=== PATIENT | female | born 1995 | race Caucasian/White ===

== ENCOUNTER 2017-02-05 07:35 | Outpatient (CLI) ==
--- NOTE | 2017-02-05 08:37 | US ---
Exam: Oliver-scale and color Doppler ultrasonographic evaluation of the abdomen. Comparison: CT abdomen pelvis performed on 02/05/2011. Reason for exam: Right upper quadrant pain. FINDINGS: The liver measures 13.66 cm in length with a normal appearing echotexture, no intrahepatic ductal dilatation, or perihepatic free fluid. There is normal antegrade portal venous flow. There is a 1.79 x 1.8 x 1.24 cm solid appearing hyperechoic nodule. The gallbladder is unremarkable without intraluminal stone, sludge or polyp. The gallbladder wall me asures 0.24 cm which is within normal limits. The common bile duct measures 0.33 cm without intraluminal stone or polyp which also is within normal limits. The partially imaged pancreas appears grossly unremarkable. The right kidney measures 10.49 x 4.28 x 4.24 cm with a normal appearing echotexture, no hydronephros is, and no nephrolithiasis. Impression: 1. 1.8 cm hyperechoic solid nodule within the hepatic parenchyma. Imaging findings are most consiste nt with a hepatic hemangioma. Other less likely etiologies include both benign and malignant process es. Recommend follow-up evaluation to document stability or further characterization with contrasted CT or MRI. 2. No acute ultrasonographic findings are seen within the partially imaged abdomen.
== END 2017-02-05 07:36 | disposition home or self-care (01) ==
LOC: RAD 07:35
PROVIDERS: ATTEND Family Medicine
DX: R10.11 Right upper quadrant pain (principal)

== ENCOUNTER 2017-02-10 07:07 | Outpatient (CLI) ==
--- NOTE | 2017-02-10 11:04 | MRI ---
Exam: MRI of the abdomen with and without contrast. History: Liver mass. Procedures: Axial and coronal T2 HASTE, axial T1W in and out of phase, axial inversion recovery, axi al T2 fat-saturated, axial diffusion weighted images with ADC maps and axial T1 fat-saturated images of the abdomen were obtained prior to the intravenous administration of 15 ml Omniscan. Dynamic post contrast axial T1 fat-saturated images of the abdomen were obtained as well as a coronal T1 fat satur ated series. Comparison: CT abdomen and pelvis 02/05/2011 and ultrasound of the abdomen 02/05/2017. Findings: The liver appears within normal limits of size. There is no significant signal drop on opp osed phase imaging. There is no enhancing intrahepatic mass or biliary ductal dilatation. There is no hepatic lesion identified to correspond to the 18 mm hyperechoic nodule on the prior ultrasound. The gallbladder is nondistended, without filling defect. The common bile duct does not appear dilate d. The spleen, pancreas and adrenal glands appear within normal limits. The kidneys enhance symmetr ically. There is no enhancing renal mass or hydronephrosis. The stomach and the visualized portions of small and large bowel appear grossly within normal limits. The abdominal aorta is not dilated. The portal vein appears patent. The osseous marrow signal appears within normal limits. There is becker btle lumbar levoscoliosis. Impressions: No acute process is identified on this study of the abdomen. Specifically, there is no hepatic lesion identified to correspond to the 18 mm hyperechoic nodule noted on the prior ultrasoun d.
== END 2017-02-10 07:08 | disposition home or self-care (01) ==
LOC: RAD 07:07
PROVIDERS: ATTEND Family Medicine
DX: R16.0 Hepatomegaly, not elsewhere classified (principal); R10.11 Right upper quadrant pain

== ENCOUNTER 2017-02-12 10:27 | Outpatient (CLI) ==
--- NOTE | 2017-02-12 11:12 | US ---
EXAM: Limited abdominal ultrasound. History: Follow-up liver lesion. Comparison: Abdominal ultrasound 02/05/2017, liver MRI 02/10/2017 Technique: Multiple sonographic images through the liver were obtained. Color duplex Doppler was us ed to interrogate vascular flow. Findings / impression: 1.4 cm x 0.9 cm oval well circumscribed hyperechoic focus within the lateral right hepatic lobe is less noticeable compared to the prior study. This either represents an artifac t or benign focal fat. There are no suspicious features. No additional follow-up is necessary.
== END 2017-02-12 10:28 | disposition home or self-care (01) ==
LOC: RAD 10:27
PROVIDERS: ATTEND Family Medicine
DX: K76.9 Liver disease, unspecified (principal)

== ENCOUNTER 2017-02-14 07:52 | Outpatient (CLI) ==
--- NOTE | 2017-02-14 10:50 | NM ---
EXAM: Hepatobiliary scan HISTORY: Right upper quadrant pain. COMPARISON: None of this type. PROCEDURE: The patient was injected with 5.1 mCi of 99mTc mebrofenin intravenously. Images of the ab domen were obtained at 5 min intervals for 30 minutes. Additional images were obtained 845 minutes a nd 1 hour. The patient was then injected with 1.6 mcg of CCK by slow infusion while images of the gal lbladder were obtained to assess gallbladder contraction. The patient described no symptoms associate d with the injection of CCK. FINDINGS: Sequential images demonstrate normal uptake of tracer into the liver. Activity is seen in the intrahepatic biliary ducts at about 10 minutes. The activity appears in the gallbladder at about 10 minutes. Subsequent images demonstrate increasing activity in the gallbladder. Activity first a ppears in the small bowel following CCK. The gallbladder ejection fraction is 55% . IMPRESSION: 1.Normal hepatobiliary scan. 2.The gallbladder ejection fraction is 55% (normal).
== END 2017-02-14 07:53 | disposition home or self-care (01) ==
LOC: RAD 07:52
PROVIDERS: ATTEND Family Medicine
DX: R10.11 Right upper quadrant pain (principal)